=== PATIENT | female | born 1935 | race Two or more races ===

== ENCOUNTER 2016-08-02 10:56 | Inpatient (IN) | payer OTHER ==
[~2016-08-02] VITALS: Ht 165.1 cm; Wt 61.9 kg
[2016-08-02] VITALS (19 sets, daily range): BP systolic 118–148; BP diastolic 66–91; PULSE 72–122; RESP 12–31; Ht 165.1 cm; Wt 61.9 kg
[~2016-08-02 10:56] MED LIST: CEFAZOLIN 2 GM/50 ML (PMX) 50 ML IVPB SCH; SOD CHLORIDE 0.9% 1,000 ML IV SCH
[2016-08-02] MEDS ORDERED: ALBU8.5H3 INH (11:23)
[2016-08-02] MEDS ORDERED: ADV25050 INHALATION (11:23)
[2016-08-02] MEDS ORDERED: ASPI81TA3 PO (11:24)
[2016-08-02] MEDS ORDERED: ALEN70TA30 PO (11:24)
[2016-08-02] MEDS ORDERED: AMLO1TAB68 PO (11:24)
[2016-08-02] MEDS ORDERED: CALC-277 PO (11:25)
[2016-08-02] MEDS ORDERED: FLUT9.9S NASAL (11:25)
[2016-08-02] MEDS ORDERED: MONT10TA24 PO (11:26)
[2016-08-02] MEDS ORDERED: SIMV20TA PO (11:26)
[2016-08-02] MEDS ORDERED: METO-429 PO (11:26)
[2016-08-02] MEDS ORDERED: CETI10CA PO (11:27)
[2016-08-02] MEDS ORDERED: ACET325T45 PO (11:27)
[2016-08-02] MEDS ORDERED: CHOL100062 PO (11:27)
[2016-08-02] MEDS ORDERED: BUPIVACAINE 0.25% (MPF) 30 ML INJ ONE (13:11)
[2016-08-02] MEDS ORDERED: PROPOFOL 20 ML ONE (13:18)
[2016-08-02] MEDS ORDERED: ROCURONIUM 50 MG INJ ONE (13:18)
[2016-08-02] MEDS ORDERED: CEFAZOLIN 1 GM INJ ONE (13:20)
[2016-08-02] MEDS ORDERED: GLYCOPYRROLATE 0.4 MG INJ ONE (13:31)
[2016-08-02] MEDS ORDERED: NEOSTIGMINE 3 MG/3 ML SYRINGE ONE (13:31)
[2016-08-02] MEDS ORDERED: ROPIVACAINE 0.5 % 30 ML VIAL ONE (13:55)
[2016-08-02] MEDS ORDERED: METOPROLOL 5 MG INJ ONE (13:55)
[2016-08-02] MEDS ORDERED: METOCLOPRAMIDE 10 MG INJ IV PRN (14:00)
[2016-08-02] MEDS ORDERED: DIPHENHYDRAMINE 50 MG INJ IV PRN (14:00)
[2016-08-02] MEDS ORDERED: OXYCODONE/ACETAMINOPHEN (5/325) TAB PO PRN (14:00)
[2016-08-02] MEDS ORDERED: ONDANSETRON 4 MG INJ IV PRN (14:00)
[2016-08-02] MEDS ORDERED: MEPERIDINE 25 MG INJ IV PRN (14:00)
[2016-08-02] MEDS ORDERED: HYDROmorphONE (0.2 MG/ML) 10ML SYG IV PRN ×3 (14:00)
[2016-08-02] MEDS ORDERED: METOCLOPRAMIDE 10 MG INJ ONE (15:06)
[2016-08-02] MEDS ORDERED: SOD CHLORIDE 0.9% 1,000 ML IV SCH (15:08)
[2016-08-02] MEDS ORDERED: FENTAnyl 50 MCG/ML VIAL ONE (15:10)
[2016-08-02] MEDS ORDERED: CEFAZOLIN 2 GM/50 ML (PMX) 50 ML IVPB SCH (15:30)
[2016-08-02] MEDS ORDERED: NALOXONE (0.4 MG/ML) INJ IV PRN (15:30)
[2016-08-02] MEDS ORDERED: HYDROmorphONE 0.2 MG/ML PCA IV SCH (15:30)
--- NOTE | 2016-08-02 15:46 | OPR ---
DATE OF OPERATION: 08/02/2016 INDICATION: This is an 81-year-old female with an incarcerated incisional hernia in the midline in the left lower quadrant, left spigelian hernia. She requests surgical repair. Risks, alternatives, benefits and personnel were discussed with the patient. Patient expressed understanding and consen ts to the operation. PREOPERATIVE DIAGNOSIS: Left spigelian hernia and incarcerated, midline incisional hernia. POSTOPERATIVE DIAGNOSIS: Left spigelian hernia and incarcerated, midline incisional hernia. OPERATION PERFORMED: 1. Open left lower quadrant spigelian hernia repair. 2. Incarcerated incisional hernia repair. CPT code 81920. 3. Implantation of mesh. CPT code 27842. 4. Omental flap intraabdominal harvest, CPT codes 26070. 5. Lysis of adhesions approximately 1 hour. SURGEON: Aster Enriquez MD SPECIMEN: Hernia sac. COMPLICATIONS: None. ANESTHESIA: General. DESCRIPTION OF PROCEDURE: The patient was taken to the OR and prepped and draped in the usual steri le fashion. Surgical timeout was performed. IV antibiotics were given. Midline incision is made t hrough the old midline scar line and the way up to the umbilicus. Open lysis of adhesions was perfo rmed mobilizing the adhesions away from the incision line. Attention was paid to the left lower charles drant where a large spigelian hernia was identified. This was closed primarily with a running #1 lo oped PDS. The midline was then closed by initially harvesting omental flap and reapproximating to t he surrounding tissues with interrupted 2-0 Vicryl to isolate the hernia away from any other content s. The hernia is then closed with underlay mesh of 15 x [address] with interrupted #1 Pr olene . After the fascial edges were freshened with an underlay of approximately 4 to 5 cm in all d irections, the midline incision was then closed after the excess hernia sac was excised and resected specimen. The midline incision at the fascia was primarily closed with running #1 looped PDS from superior to anterior and inferior to superior and tied down. The potential space created by the her elizabeth sac is then reapproximated with interrupted 2-0 Vicryl. The midline incision was then closed wi th skin cheli. Local anesthesia was injected. Dry dressings were applied. Dictated By: ASTER ENRIQUEZ MD SB/NTS Conf#: [id number] [facility]#: [id number]
[2016-08-02 16:35] LABS: ADD SCAN DIFF NO
[2016-08-02 16:38] LABS: BASOPHIL # 0.1 10^3/ul (0.0-0.1); BASOPHILS % 0.3 % (0.0-2.0); EOSINOPHILS # 0.1 10^3/ul (0.0-0.5); EOSINOPHILS % 0.7 % (0.0-7.0); HEMATOCRIT 38.7 % (37.0-47.0); HEMOGLOBIN 12.7 g/dl (12.0-16.0); LYMPHOCYTES # 1.8 10^3/ul (0.8-2.9); LYMPHOCYTES % 11.9 % (15.0-51.0); MEAN CORPUSCULAR HEMOGLOBIN 31.8 pg (29.0-33.0); MEAN CORPUSCULAR HGB CONC 32.8 g/dl (32.0-37.0); MONOCYTE # 0.7 10^3/ul (0.3-0.9); MONOCYTES % 4.6 % (0.0-11.0); NEUTROPHIL # 12.3 10^3/ul (1.6-7.5); PLATELET COUNT 187 10^3/UL (140-415); RED BLOOD COUNT 3.99 10^6/ul (4.20-5.40); RED CELL DISTRIBUTION WIDTH 13.1 % (11.5-14.5); WHITE BLOOD COUNT 15.1 10^3/ul (4.8-10.8)
[2016-08-02 16:57] LABS: ALBUMIN 3.7 g/dl (3.3-4.9); ALBUMIN/GLOBULIN RATIO 1.54; BILIRUBIN,INDIRECT 0.1 mg/dl (0-1.1); BILIRUBIN,TOTAL 0.1 mg/dl (0.2-1.3); POTASSIUM 4.3 mmol/L (3.5-5.1); TOTAL PROTEIN 6.1 g/dl (6.1-8.1)
[2016-08-02 16:58] LABS: CALCIUM 8.6 mg/dl (8.4-10.2); CREATININE 0.62 mg/dl (0.44-1.00)
[2016-08-02] MEDS: SOD CHLORIDE 0.45% 1,000 ML IV SCH (18:47)
[2016-08-02] MEDS ORDERED: hydrALAzine 20 MG INJ IV PRN (19:00)
[2016-08-02] MEDS: ONDANSETRON 4 MG INJ IV PRN (19:05)
--- NOTE | 2016-08-02 20:28 | HP ---
DATE OF ADMISSION: 08/02/2016 CHIEF COMPLAINT AND HISTORY OF PRESENT ILLNESS: The patient is an 81-year-old female with a history of and laparoscopic cholecystectomy, was seen by Dr. Enriquez as an outpatient and was diagnos ed with incisional hernia. The patient was initially managed with conservative treatment. The [facility] ent had a CT of the abdomen done as an outpatient which revealed large right periumbilical hernia co ntaining multiple loops of small bowel without evidence for bowel obstruction. The patient also was incidentally noted to have extensive diverticulosis and partially visualized large cystocele. The patient subsequently failed conservative treatment and was seen by Dr. Enriquez again due to continued ab dominal pain, and the patient underwent nuclear stress test as an outpatient for cardiology clearanc e, which was negative for ischemia. EF was 65%. The patient was brought into the hospital today, a nd the preoperative diagnosis was left spigelian hernia and incarcerated midline incisional hernia. The patient underwent open left lower quadrant spigelian hernia repair and also incarcerated incisi onal hernia repair. The patient underwent implantation of mesh. The patient also underwent lysis o f adhesions. The patient was sent to medical floor for further evaluation and management. The [facility] ent does have postoperative discomfort for which patient will be given IV morphine. The patient den ies any chest pain and is breathing comfortably. No reported vomiting, no reported chest congestion , no reported leg edema. The patient does not have any focal deficit. The patient is awake and res ponsive. Rest of the review of systems was unremarkable. PAST MEDICAL HISTORY: Positive for hypertension, dyslipidemia and possible asthma versus COPD. ALLERGIES: CODEINE. SOCIAL HISTORY: No smoking, no alcohol. FAMILY HISTORY: Noncontributory. PHYSICAL EXAMINATION: GENERAL: The patient is conscious, awake, alert. VITAL SIGNS: Temperature 98, pulse 112, respirations 16, blood pressure 121/74, O2 saturation 92% o n ____ liters. HEENT: Atraumatic, normocephalic. Conjunctivae and lids normal. Oropharynx clear. NECK: Supple. No mass, no thyromegaly. CHEST: Fairly clear. No use of accessory muscles. CARDIOVASCULAR: S1, S2 normal. No murmur. ABDOMEN: Examination was deferred due to recent surgery. EXTREMITIES: No leg edema. Pedal pulses palpable. SKIN: Without acute rash. NEUROLOGIC: The patient is awake, alert, follows simple commands. LABORATORY DATA: WBC 15.1, hemoglobin 12.7, platelets 187. Sodium 143, potassium 4.3, BUN 12, crea tinine 0.6. Liver enzymes normal. 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 IMPRESSION: 1. Left spigelian hernia and incarcerated midline incisional hernia, status post open repair. 2. Hypertension. 3. Dyslipidemia. 4. Asthma/ chronic obstructive pulmonary disease. PLAN: The patient admitted on medical floor. The patient will be given a clear liquid diet. The p atient will receive IV cefazolin as per protocol. Will continue IV fluid, IV Tylenol, p.o. Percocet and IV Dilaudid for pain control. The patient did receive IV Dilaudid in recovery room and tolerat ed it well. The patient is currently on IV Dilaudid ENTRY LEVEL RECRUITER. Her mental status and respiratory status will be monitored closely due to history of COPD. Will hold off on her oral medication. Will use I V hydralazine on p.r.n. basis. Will also add DuoNeb. Dictated By: RONI WORTHINGTON/NTS Conf#: [id number] [facility]#: [id number]
[2016-08-02] MEDS: CEFAZOLIN 2 GM/50 ML (PMX) 50 ML IVPB SCH (21:30)
[2016-08-02] MEDS: ALBUTEROL/IPRATROPIUM (NEB) 3 ML AMP HHN SCH (22:04)
[2016-08-03 00:15] VITALS: BP 131/75; PULSE 108; RESP 16
[2016-08-03] MEDS: SOD CHLORIDE 0.45% 1,000 ML IV SCH ×3 (04:45→18:14)
[2016-08-03] MEDS: ONDANSETRON 4 MG INJ IV PRN ×2 (04:54→13:56)
[2016-08-03] MEDS: CEFAZOLIN 2 GM/50 ML (PMX) 50 ML IVPB SCH ×2 (05:23→14:54)
[2016-08-03 05:37] LABS: ADD SCAN DIFF NO
[2016-08-03 05:51] LABS: BASOPHILS % 0.1 % (0.0-2.0); HEMOGLOBIN 12.4 g/dl (12.0-16.0); LYMPHOCYTES # 0.9 10^3/ul (0.8-2.9); LYMPHOCYTES % 5.5 % (15.0-51.0); MEAN CORPUSCULAR HEMOGLOBIN 31.9 pg (29.0-33.0); MEAN CORPUSCULAR HGB CONC 33.5 g/dl (32.0-37.0); MEAN CORPUSCULAR VOLUME 95.1 fl (82.0-101.0); MONOCYTE # 1.2 10^3/ul (0.3-0.9); MONOCYTES % 7.9 % (0.0-11.0); NEUTROPHIL # 13.3 10^3/ul (1.6-7.5); PLATELET COUNT 181 10^3/UL (140-415); RED BLOOD COUNT 3.89 10^6/ul (4.20-5.40); RED CELL DISTRIBUTION WIDTH 13.2 % (11.5-14.5); WHITE BLOOD COUNT 15.5 10^3/ul (4.8-10.8)
[2016-08-03 06:03] LABS: ALBUMIN 3.8 g/dl (3.3-4.9); ALBUMIN/GLOBULIN RATIO 1.46; BILIRUBIN,INDIRECT 0.4 mg/dl (0-1.1); BILIRUBIN,TOTAL 0.4 mg/dl (0.2-1.3); CALCIUM 8.7 mg/dl (8.4-10.2); CREATININE 0.64 mg/dl (0.44-1.00); POTASSIUM 4.6 mmol/L (3.5-5.1); TOTAL PROTEIN 6.4 g/dl (6.1-8.1)
[2016-08-03] MEDS: ACETAMINOPHEN 325 MG TAB PO PRN (07:07)
[2016-08-03 08:05] VITALS: BP 124/71; RESP 20
[2016-08-03] MEDS: ALBUTEROL/IPRATROPIUM (NEB) 3 ML AMP HHN SCH ×3 (09:14→20:31)
[2016-08-03 09:16] VITALS: BP 145/63; PULSE 69
[2016-08-03] MEDS: ACETAMINOPHEN 1000MG/100ML IV 100 ML IVPB PRN (09:25)
[2016-08-03 12:00] VITALS: BP 126/65; PULSE 104; RESP 18
--- NOTE | 2016-08-03 12:05 | PN ---
Date/Time of Note Date/Time of Note DATE: 08/03/16 TIME: 12:03 Assessment/Plan VTE Prophylaxis VTE Prophylaxis Intervention: SCD's Lines/Catheters IV Catheter Type (from Nrs): Peripheral IV Assessment/Plan Chief Complaint/Hosp Course s/p open incarcerated incisional hernia repair with mesh and left spigelian hernia repair Problems: Assessment/Plan doing well ambulate and regular diet dispo planning Subjective 24 Hr Interval Summary Free Text/Dictation doing well, some nausea Exam/Review of Systems Vital Signs Vitals Vital Signs Date Time Temp Pulse Resp B/P Pulse Ox O2 Delivery O2 Flow Rate FiO2 08/03/16 09:16 69 145/63 08/03/16 09:16 20 94 Nasal Cannula 3.0 08/03/16 08:05 99.0 Intake and Output 08/02/16 08/02/16 08/03/16 15:00 23:00 07:00 Intake Total 1200 ml 1550 ml Output Total 30 ml Balance 1170 ml 1550 ml Exam dressing intact Results Result Diagram: 08/03/16 0508 08/03/16 0500 Results 24 hrs Laboratory Tests Test 08/02/16 15:45 08/03/16 05:00 08/03/16 05:08 White Blood Count 15.1 H 15.5 H Red Blood Count 3.99 L 3.89 L Hemoglobin 12.7 12.4 Hematocrit 38.7 37.0 Mean Corpuscular Volume 97.0 95.1 Mean Corpuscular Hemoglobin 31.8 31.9 Mean Corpuscular Hemoglobin Concent 32.8 33.5 Red Cell Distribution Width 13.1 13.2 Platelet Count 187 181 Mean Platelet Volume 11.0 H 11.0 H Neutrophils % 82.0 H 86.0 H Lymphocytes % 11.9 L 5.5 L Monocytes % 4.6 7.9 Eosinophils % 0.7 0.0 Basophils % 0.3 0.1 Nucleated Red Blood Cells % 0.0 0.0 Neutrophils # 12.3 H 13.3 H Lymphocytes # 1.8 0.9 Monocytes # 0.7 1.2 H Eosinophils # 0.1 0.0 Basophils # 0.1 0.0 Nucleated Red Blood Cells # 0.0 0.0 Sodium Level 141 134 L Potassium Level 4.3 4.6 Chloride Level 115 H 108 Carbon Dioxide Level 24 23 Anion Gap 6 L 8 Blood Urea Nitrogen 12 16 Creatinine 0.62 0.64 Glucose Level 167 147 Calcium Level 8.6 8.7 Total Bilirubin 0.1 L 0.4 Direct Bilirubin 0.00 0.00 Indirect Bilirubin 0.1 0.4 Aspartate Amino Transf (AST/SGOT) 18 18 Alanine Aminotransferase (ALT/SGPT) 26 27 Alkaline Phosphatase 61 48 Total Protein 6.1 6.4 Albumin 3.7 3.8 Globulin 2.40 2.60 Albumin/Globulin Ratio 1.54 1.46 Medications Medications Current Medications Naloxone HCl (Narcan) 0.2 mg Q2M PRN IV RR 8 BREATHS/MIN OR LESS; Start at 15:30 Hydromorphone HCl Q4PCA IV Last administered on 08/02/16 15:39; Admin Dose 6 MG; Start 08/02/16 at 15:30 Cefazolin Sodium/ Dextrose 50 ml @ 100 mls/hr Q8H IVPB Last administered on 05:23; Admin Dose 100 MLS/HR; Start 08/02/16 at 21:30; Stop 08/03/16 at 13 :59 Acetaminophen (Ofirmev 1000mg/ 100ml Iv) 100 ml @ 400 mls/hr Q6H PRN IVPB PAIN LEVEL 1-3 Last administered on 08/03/16 09:25; Admin Dose 400 MLS/HR; Start 08/02/16 at 19:00 Hydralazine HCl 10 mg 10 mg Q4H PRN IV SBP>160; Start 08/02/16 at 19:00 Sodium Chloride (1/2 NS) 1,000 ml @ 100 mls/hr Q10H IV Last administered on 04:45; Admin Dose 100 MLS/HR; Start 08/02/16 at 19:00 Ondansetron HCl (Zofran Inj) 4 mg Q6H PRN IV NAUSEA AND/OR VOMITING Last administered on 08/03/16 04:54; Admin Dose 4 MG; Start 08/02/16 at 18:57 Acetaminophen (Tylenol Tab) 650 mg Q6H PRN PO PAIN AND OR ELEVATED TEMP; Start 08/03/16 at 07:30 Mumtaz ZAMBRANO Aug 03, 2016 12:04
[2016-08-03] MEDS ORDERED: morphine 2 MG INJ IV PRN (12:30)
--- NOTE | 2016-08-03 12:50 | PN ---
Date/Time of Note Date/Time of Note DATE: 08/03/16 TIME: 12:34 Assessment/Plan VTE Prophylaxis VTE Prophylaxis Intervention: SCD's Lines/Catheters IV Catheter Type (from Nrsg): Peripheral IV Assessment/Plan Assessment/Plan - Left spigelian hernia and incarcerated midline incisional hernia, status post open repair. - per surgery , IV cefazolin as per protocol. - clear liquid diet - IV Dilaudid MAC OPERATOR-c/o nausea/vomitting - Tylenol 1 gmIV q6hr prn - ultram 50 mg po q4hr prn pain - toradol 15 gm iv q6hr prn - Hypertension. - IV hydralazine on p.r.n. basis. - Dyslipidemia. - Asthma/ chronic obstructive pulmonary disease. -cont DuoNeb. Dw Dr Oseguera/staff/daughter Subjective 24 Hr Interval Summary Constitutional: requiring IVF Exam/Review of Systems Vital Signs Vitals Vital Signs Date Time Temp Pulse Resp B/P Pulse Ox O2 Delivery O2 Flow Rate FiO2 08/03/16 09:16 69 145/63 08/03/16 09:16 20 94 Nasal Cannula 3.0 08/03/16 08:05 99.0 Intake and Output 08/02/16 08/02/16 08/03/16 14:59 22:59 06:59 Intake Total 1200 ml 1550 ml Output Total 30 ml Balance 1170 ml 1550 ml Exam Constitutional: alert, well developed Respiratory: clear to auscultation, normal air movement Cardiovascular: nl pulses, regular rate and rhythm Gastrointestinal: soft, tender Neurological: nl mental status, nl speech Skin: other Lymph: nontender Results Result Diagram: 08/03/16 0508 08/03/16 0500 Results 24 hrs Laboratory Tests Test 08/02/16 15:45 08/03/16 05:00 08/03/16 05:08 White Blood Count 15.1 H 15.5 H Red Blood Count 3.99 L 3.89 L Hemoglobin 12.7 12.4 Hematocrit 38.7 37.0 Mean Corpuscular Volume 97.0 95.1 Mean Corpuscular Hemoglobin 31.8 31.9 Mean Corpuscular Hemoglobin Concent 32.8 33.5 Red Cell Distribution Width 13.1 13.2 Platelet Count 187 181 Mean Platelet Volume 11.0 H 11.0 H Neutrophils % 82.0 H 86.0 H Lymphocytes % 11.9 L 5.5 L Monocytes % 4.6 7.9 Eosinophils % 0.7 0.0 Basophils % 0.3 0.1 Nucleated Red Blood Cells % 0.0 0.0 Neutrophils # 12.3 H 13.3 H Lymphocytes # 1.8 0.9 Monocytes # 0.7 1.2 H Eosinophils # 0.1 0.0 Basophils # 0.1 0.0 Nucleated Red Blood Cells # 0.0 0.0 Sodium Level 141 134 L Potassium Level 4.3 4.6 Chloride Level 115 H 108 Carbon Dioxide Level 24 23 Anion Gap 6 L 8 Blood Urea Nitrogen 12 16 Creatinine 0.62 0.64 Glucose Level 167 147 Calcium Level 8.6 8.7 Total Bilirubin 0.1 L 0.4 Direct Bilirubin 0.00 0.00 Indirect Bilirubin 0.1 0.4 Aspartate Amino Transf (AST/SGOT) 18 18 Alanine Aminotransferase (ALT/SGPT) 26 27 Alkaline Phosphatase 61 48 Total Protein 6.1 6.4 Albumin 3.7 3.8 Globulin 2.40 2.60 Albumin/Globulin Ratio 1.54 1.46 Medications Medications Current Medications Naloxone HCl 0.2 mg 0.2 mg Q2M PRN IV RR 8 BREATHS/MIN OR LESS; Start 08/02/16 at 15:30 Cefazolin Sodium/ Dextrose 50 ml @ 100 mls/hr Q8H IVPB Last administered on 05:23; Admin Dose 100 MLS/HR; Start 08/02/16 at 21:30; Stop 08/03/16 at 13 :59 Acetaminophen (Ofirmev 1000mg/ 100ml Iv) 100 ml @ 400 mls/hr Q6H PRN IVPB PAIN LEVEL 1-3 Last administered on 08/03/16 09:25; Admin Dose 400 MLS/HR; Start 08/02/16 at 19:00 Hydralazine HCl 10 mg 10 mg Q4H PRN IV SBP>160; Start 08/02/16 at 19:00 Sodium Chloride (1/2 NS) 1,000 ml @ 100 mls/hr Q10H IV Last administered on 04:45; Admin Dose 100 MLS/HR; Start 08/02/16 at 19:00 Ondansetron HCl (Zofran Inj) 4 mg Q6H PRN IV NAUSEA AND/OR VOMITING Last administered on 08/03/16t 04:54; Admin Dose 4 MG; Start 08/02/16 at 18:57 Acetaminophen (Tylenol Tab) 650 mg Q6H PRN PO PAIN AND OR ELEVATED TEMP; Start 08/03/16 at 07:30 Morphine Sulfate (morphine) 1 mg Q3H PRN IV PAIN; Start 08/03/16 at 12:30; Status ARIADNA HIRSCH Aug 03, 2016 12:45
[2016-08-03] MEDS ORDERED: ACETAMINOPHEN 1000MG/100ML IV 100 ML IVPB PRN (13:00)
[2016-08-03] MEDS ORDERED: PANTOPRAZOLE 40 MG INJ IV ONE (13:00)
[2016-08-03] MEDS: KETOROLAC 15 MG INJ IV PRN (16:42)
[2016-08-03] MEDS: traMADol 50 MG TAB PO PRN (18:14)
[2016-08-03 20:00] VITALS: BP 136/69; RESP 18
[2016-08-04] MEDS: SOD CHLORIDE 0.45% 1,000 ML IV SCH ×4 (01:00→15:14)
[2016-08-04] MEDS: ACETAMINOPHEN 1000MG/100ML IV 100 ML IVPB PRN ×2 (02:23→15:16)
[2016-08-04 05:35] LABS: ADD SCAN DIFF NO
[2016-08-04] MEDS: PANTOPRAZOLE 40 MG INJ IV SCH (05:46)
[2016-08-04 05:49] LABS: BASOPHILS % 0.1 % (0.0-2.0); EOSINOPHILS % 0.2 % (0.0-7.0); HEMATOCRIT 31.2 % (37.0-47.0); HEMOGLOBIN 10.3 g/dl (12.0-16.0); LYMPHOCYTES % 7.9 % (15.0-51.0); MEAN CORPUSCULAR HEMOGLOBIN 31.7 pg (29.0-33.0); MEAN PLATELET VOLUME 11.3 fl (7.4-10.4); MONOCYTES % 7.3 % (0.0-11.0); NEUTROPHILS % 84.2 % (39.0-77.0); PLATELET COUNT 149 10^3/UL (140-415); RED BLOOD COUNT 3.25 10^6/ul (4.20-5.40); RED CELL DISTRIBUTION WIDTH 13.4 % (11.5-14.5); WHITE BLOOD COUNT 13.1 10^3/ul (4.8-10.8)
[2016-08-04 07:04] LABS: CALCIUM 8.1 mg/dl (8.4-10.2); CREATININE 0.62 mg/dl (0.44-1.00); POTASSIUM 4.2 mmol/L (3.5-5.1)
[2016-08-04 08:20] VITALS: BP 138/65; RESP 16
[2016-08-04] MEDS: ALBUTEROL/IPRATROPIUM (NEB) 3 ML AMP HHN SCH ×3 (09:16→20:20)
--- NOTE | 2016-08-04 16:42 | PN ---
Date/Time of Note Date/Time of Note DATE: 08/04/16 TIME: 16:38 Assessment/Plan VTE Prophylaxis VTE Prophylaxis Intervention: SCD's Lines/Catheters IV Catheter Type (from Nrsg): Peripheral IV Assessment/Plan Chief Complaint/Hosp Course Patient denies any nausea and vomiting, complaints of surgical pain, well controlled on current rate medication regimen, tolerates diet well, however daughter at the bedside complaints of the patient has poor appetite, awaits for physical therapy. Problems: Assessment/Plan - Left spigelian hernia and incarcerated midline incisional hernia, status post open repair. Continue Ultram and morphine for pain Zofran as needed for nausea. Follow-up surgical recommendations. - Hypertension. Patient is currently normotensive. - Dyslipidemia. - Asthma/ chronic obstructive pulmonary disease. Continue Advair and montelukast. Further recommendations based on clinical course. Plan of care was discussed with Dr. Oseguera. Exam/Review of Systems Vital Signs Vitals Vital Signs Date Time Temp Pulse Resp B/P Pulse Ox O2 Delivery O2 Flow Rate FiO2 08/04/16 13:49 95 20 96 Nasal Cannula 3.0 08/04/16 08:20 98.2 138/65 Intake and Output 08/03/16 08/03/16 08/04/16 15:00 23:00 07:00 Intake Total 100 ml 490 ml 1500 ml Balance 100 ml 490 ml 1500 ml Exam Constitutional: alert, oriented Head: normocephalic Neck: supple Respiratory: clear to auscultation Cardiovascular: nl pulses Gastrointestinal: other (Status post surgery), soft Extremities: normal pulses Results Result Diagram: 08/04/16 0455 08/04/16 0455 Results 24 hrs Laboratory Tests Test 08/04/16 04:55 White Blood Count 13.1 H Red Blood Count 3.25 L Hemoglobin 10.3 L Hematocrit 31.2 L Mean Corpuscular Volume 96.0 Mean Corpuscular Hemoglobin 31.7 Mean Corpuscular Hemoglobin Concent 33.0 Red Cell Distribution Width 13.4 Platelet Count 149 Mean Platelet Volume 11.3 H Neutrophils % 84.2 H Lymphocytes % 7.9 L Monocytes % 7.3 Eosinophils % 0.2 Basophils % 0.1 Nucleated Red Blood Cells % 0.0 Neutrophils # 11.0 H Lymphocytes # 1.0 Monocytes # 1.0 H Eosinophils # 0.0 Basophils # 0.0 Nucleated Red Blood Cells # 0.0 Sodium Level 133 L Potassium Level 4.2 Chloride Level 104 Carbon Dioxide Level 23 Anion Gap 10 Blood Urea Nitrogen 13 Creatinine 0.62 Glucose Level 111 Calcium Level 8.1 L Medications Medications Current Medications Naloxone HCl 0.2 mg 0.2 mg Q2M PRN IV RR 8 BREATHS/MIN OR LESS; Start 08/02/16 at 15:30 Acetaminophen (Ofirmev 1000mg/ 100ml Iv) 100 ml @ 400 mls/hr Q6H PRN IVPB PAIN LEVEL 1-3 Last administered on 08/04/16 15:16; Admin Dose 400 MLS/HR; Start 08/02/16 at 19:00 Hydralazine HCl 10 mg 10 mg Q4H PRN IV SBP>160; Start 08/02/16 at 19:00 Sodium Chloride (1/2 NS) 1,000 ml @ 100 mls/hr Q10H IV Last administered on 15:14; Admin Dose 100 MLS/HR; Start 08/02/16 at 19:00 Ondansetron HCl (Zofran Inj) 4 mg Q6H PRN IV NAUSEA AND/OR VOMITING Last administered on 08/03/16 13:56; Admin Dose 4 MG; Start 08/02/16 at 18:57 Acetaminophen (Tylenol Tab) 650 mg Q6H PRN PO PAIN AND OR ELEVATED TEMP; Start 08/03/16 at 07:30 Morphine Sulfate (morphine) 1 mg Q3H PRN IV PAIN; Start 08/03/16 at 12:30 Pantoprazole (Protonix Iv) 40 mg DAILY@06 IV Last administered on 08/04/16 05: 46; Admin Dose 40 MG; Start 08/04/16 at 06:00 Tramadol HCl (Ultram) 50 mg Q4H PRN PO PAIN LEVEL 4-6 Last administered on 18:14; Admin Dose 50 MG; Start 08/03/16 at 13:00 Ketorolac Tromethamine (Toradol) 15 mg Q6H PRN IV SEVERE PAIN LEVEL 7-10 Last administered on 08/03/16 16:42; Admin Dose 15 MG; Start 08/03/16 at 13:00; Stop 08/06/16 at 12:59 KEVON DESIR Aug 04, 2016 16:41
--- NOTE | 2016-08-04 18:31 | PN ---
Date/Time of Note Date/Time of Note DATE: 08/04/16 TIME: 18:31 Assessment/Plan VTE Prophylaxis VTE Prophylaxis Intervention: SCD's Lines/Catheters IV Catheter Type (from Nrsg): Peripheral IV Assessment/Plan Chief Complaint/Hosp Course s/p open incarcerated incisional hernia repair with mesh and left spigelian hernia repair Problems: Assessment/Plan dispo planning Subjective 24 Hr Interval Summary Free Text/Dictation per daughter, patient had vomiting however nothing record in I/O Exam/Review of Systems Vital Signs Vitals Vital Signs Date Time Temp Pulse Resp B/P Pulse Ox O2 Delivery O2 Flow Rate FiO2 08/04/16 13:49 95 20 96 Nasal Cannula 3.0 08/04/16 08:20 98.2 138/65 Intake and Output 08/03/16 08/03/16 08/04/16 15:00 23:00 07:00 Intake Total 100 ml 490 ml 1500 ml Balance 100 ml 490 ml 1500 ml Exam c/d/i Results Result Diagram: 08/04/16 0455 08/04/16 0455 Results 24 hrs Laboratory Tests Test 08/04/16 04:55 White Blood Count 13.1 H Red Blood Count 3.25 L Hemoglobin 10.3 L Hematocrit 31.2 L Mean Corpuscular Volume 96.0 Mean Corpuscular Hemoglobin 31.7 Mean Corpuscular Hemoglobin Concent 33.0 Red Cell Distribution Width 13.4 Platelet Count 149 Mean Platelet Volume 11.3 H Neutrophils % 84.2 H Lymphocytes % 7.9 L Monocytes % 7.3 Eosinophils % 0.2 Basophils % 0.1 Nucleated Red Blood Cells % 0.0 Neutrophils # 11.0 H Lymphocytes # 1.0 Monocytes # 1.0 H Eosinophils # 0.0 Basophils # 0.0 Nucleated Red Blood Cells # 0.0 Sodium Level 133 L Potassium Level 4.2 Chloride Level 104 Carbon Dioxide Level 23 Anion Gap 10 Blood Urea Nitrogen 13 Creatinine 0.62 Glucose Level 111 Calcium Level 8.1 L Medications Medications Current Medications Naloxone HCl 0.2 mg 0.2 mg Q2M PRN IV RR 8 BREATHS/MIN OR LESS; Start 08/02/16 at 15:30 Acetaminophen (Ofirmev 1000mg/ 100ml Iv) 100 ml @ 400 mls/hr Q6H PRN IVPB PAIN LEVEL 1-3 Last administered on 08/04/16t 15:16; Admin Dose 400 MLS/HR; Start 08/02/16 at 19:00 Hydralazine HCl 10 mg 10 mg Q4H PRN IV SBP>160; Start 08/02/16 at 19:00 Sodium Chloride (1/2 NS) 1,000 ml @ 40 mls/hr Q24H IV Last administered on 08/04 15:14; Admin Dose 100 MLS/HR; Start 08/02/16 at 19:00 Ondansetron HCl (Zofran Inj) 4 mg Q6H PRN IV NAUSEA AND/OR VOMITING Last administered on 08/03/16 13:56; Admin Dose 4 MG; Start 08/02/16 at 18:57 Acetaminophen (Tylenol Tab) 650 mg Q6H PRN PO PAIN AND OR ELEVATED TEMP; Start 08/03/16 at 07:30 Morphine Sulfate (morphine) 1 mg Q3H PRN IV PAIN; Start 08/03/16 at 12:30 Pantoprazole (Protonix Iv) 40 mg DAILY@06 IV Last administered on 08/04/16 05: 46; Admin Dose 40 MG; Start 08/04/16 at 06:00 Tramadol HCl (Ultram) 50 mg Q4H PRN PO PAIN LEVEL 4-6 Last administered on 18:14; Admin Dose 50 MG; Start 08/03/16 at 13:00 Ketorolac Tromethamine (Toradol) 15 mg Q6H PRN IV SEVERE PAIN LEVEL 7-10 Last administered on 08/03/16 16:42; Admin Dose 15 MG; Start 08/03/16 at 13:00; Stop 08/06/16 at 12:59 Montelukast Sodium (Singulair) 10 mg QHS PO ; Start 08/04/16 at 21:00 Salmeterol Xinafoate/ Fluticasone (Advair 250/50 Diskus) 1 inh BID INH ; Start 08/04/16 at 21:00 Mumtaz ZAMBRANO Aug 04, 2016 18:31
[2016-08-04] MEDS: SALMETEROL/FLUTICASONE 250/50 INHA INH SCH (20:31)
[2016-08-04] MEDS: MONTELUKAST 10 MG TAB PO SCH (20:31)
[2016-08-04] MEDS: ONDANSETRON 4 MG INJ IV PRN (20:31)
[2016-08-04 20:34] VITALS: BP 134/71; RESP 20
[2016-08-05] MEDS: KETOROLAC 15 MG INJ IV PRN ×3 (00:14→23:58)
[2016-08-05] MEDS: PANTOPRAZOLE 40 MG INJ IV SCH (05:05)
[2016-08-05 05:57] LABS: ADD SCAN DIFF NO
[2016-08-05 06:03] LABS: BASOPHILS % 0.4 % (0.0-2.0); EOSINOPHILS # 0.2 10^3/ul (0.0-0.5); EOSINOPHILS % 2.2 % (0.0-7.0); HEMATOCRIT 31.9 % (37.0-47.0); HEMOGLOBIN 10.6 g/dl (12.0-16.0); LYMPHOCYTES # 0.8 10^3/ul (0.8-2.9); LYMPHOCYTES % 7.8 % (15.0-51.0); MEAN CORPUSCULAR HEMOGLOBIN 31.7 pg (29.0-33.0); MEAN CORPUSCULAR HGB CONC 33.2 g/dl (32.0-37.0); MEAN CORPUSCULAR VOLUME 95.5 fl (82.0-101.0); MEAN PLATELET VOLUME 10.9 fl (7.4-10.4); MONOCYTE # 0.8 10^3/ul (0.3-0.9); MONOCYTES % 8.5 % (0.0-11.0); NEUTROPHIL # 7.8 10^3/ul (1.6-7.5); NEUTROPHILS % 80.8 % (39.0-77.0); PLATELET COUNT 156 10^3/UL (140-415); RED BLOOD COUNT 3.34 10^6/ul (4.20-5.40); RED CELL DISTRIBUTION WIDTH 13.2 % (11.5-14.5); WHITE BLOOD COUNT 9.7 10^3/ul (4.8-10.8)
[2016-08-05 06:27] LABS: CALCIUM 8.4 mg/dl (8.4-10.2); CREATININE 0.56 mg/dl (0.44-1.00)
[2016-08-05] MEDS: ALBUTEROL/IPRATROPIUM (NEB) 3 ML AMP HHN SCH ×3 (07:45→19:40)
[2016-08-05 07:48] VITALS: BP 124/62; RESP 16
[2016-08-05] MEDS: SALMETEROL/FLUTICASONE 250/50 INHA INH SCH ×2 (08:52→21:12)
--- NOTE | 2016-08-05 14:32 | PN ---
Date/Time of Note Date/Time of Note DATE: 08/05/16 TIME: 14:30 Assessment/Plan VTE Prophylaxis VTE Prophylaxis Intervention: other Lines/Catheters IV Catheter Type (from Nrsg): Peripheral IV Assessment/Plan Assessment/Plan Patient denies any nausea and vomiting, complaints of surgical pain, well controlled on current rate medication regimen, tolerates diet well, - Left spigelian hernia and incarcerated midline incisional hernia, status post open repair. Continue Ultram and morphine for pain Zofran as needed for nausea. Follow-up surgical recommendations. - Hypertension. Patient is currently normotensive. - Dyslipidemia. - Asthma/ chronic obstructive pulmonary disease. Continue Advair and montelukast. Further recommendations based on clinical course. Plan of care was discussed with Dr. Oseguera. Exam/Review of Systems Vital Signs Vitals Vital Signs Date Time Temp Pulse Resp B/P Pulse Ox O2 Delivery O2 Flow Rate FiO2 08/05/16 13:56 96 20 96 Nasal Cannula 3.0 08/05/16 07:48 98.4 124/62 Intake and Output 08/04/16 08/04/16 08/05/16 15:00 23:00 07:00 Intake Total 1480 ml 960 ml Output Total 20 ml Balance 1480 ml 940 ml Exam Constitutional: alert Respiratory: clear to auscultation, normal air movement Cardiovascular: nl pulses, regular rate and rhythm Gastrointestinal: non-tender, soft Musculoskeletal: nl extremities to inspection Extremities: normal pulses Skin: other Results Result Diagram: 08/05/16 0510 08/05/16 0510 Results 24 hrs Laboratory Tests Test 08/05/16 05:10 White Blood Count 9.7 # Red Blood Count 3.34 L Hemoglobin 10.6 L Hematocrit 31.9 L Mean Corpuscular Volume 95.5 Mean Corpuscular Hemoglobin 31.7 Mean Corpuscular Hemoglobin Concent 33.2 Red Cell Distribution Width 13.2 Platelet Count 156 Mean Platelet Volume 10.9 H Neutrophils % 80.8 H Lymphocytes % 7.8 L Monocytes % 8.5 Eosinophils % 2.2 Basophils % 0.4 Nucleated Red Blood Cells % 0.0 Neutrophils # 7.8 H Lymphocytes # 0.8 Monocytes # 0.8 Eosinophils # 0.2 Basophils # 0.0 Nucleated Red Blood Cells # 0.0 Sodium Level 136 Potassium Level 4.0 Chloride Level 109 Carbon Dioxide Level 23 Anion Gap 8 Blood Urea Nitrogen 9 Creatinine 0.56 Glucose Level 101 Calcium Level 8.4 Medications Medications Current Medications Naloxone HCl 0.2 mg 0.2 mg Q2M PRN IV RR 8 BREATHS/MIN OR LESS; Start 08/02/16 at 15:30 Acetaminophen (Ofirmev 1000mg/ 100ml Iv) 100 ml @ 400 mls/hr Q6H PRN IVPB PAIN LEVEL 1-3 Last administered on 08/04/16 15:16; Admin Dose 400 MLS/HR; Start 08/02/16 at 19:00 Hydralazine HCl 10 mg 10 mg Q4H PRN IV SBP>160; Start 08/02/16 at 19:00 Sodium Chloride (1/2 NS) 1,000 ml @ 40 mls/hr Q24H IV Last administered on 08/04 15:14; Admin Dose 100 MLS/HR; Start 08/02/16 at 19:00 Ondansetron HCl (Zofran Inj) 4 mg Q6H PRN IV NAUSEA AND/OR VOMITING Last administered on 08/04/16 20:31; Admin Dose 4 MG; Start 08/02/16 at 18:57 Acetaminophen (Tylenol Tab) 650 mg Q6H PRN PO PAIN AND OR ELEVATED TEMP; Start 08/03/16 at 07:30 Morphine Sulfate (morphine) 1 mg Q3H PRN IV PAIN; Start 08/03/16 at 12:30 Pantoprazole (Protonix Iv) 40 mg DAILY@06 IV Last administered on 08/05/16 05: 05; Admin Dose 40 MG; Start 08/04/16 at 06:00 Tramadol HCl (Ultram) 50 mg Q4H PRN PO PAIN LEVEL 4-6 Last administered on 18:14; Admin Dose 50 MG; Start 08/03/16 at 13:00 Ketorolac Tromethamine (Toradol) 15 mg Q6H PRN IV SEVERE PAIN LEVEL 7-10 Last administered on 08/05/16 11:19; Admin Dose 15 MG; Start 08/03/16 at 13:00; Stop 08/06/16 at 12:59 Montelukast Sodium (Singulair) 10 mg QHS PO Last administered on 08/04/16 20:31 ; Admin Dose 10 MG; Start 08/04/16 at 21:00 Salmeterol Xinafoate/ Fluticasone (Advair 250/50 Diskus) 1 inh BID INH Last administered on 08/05/16t 08:52; Admin Dose 1 INH; Start 08/04/16 at 21:00 ARIADNA VILA Aug 05, 2016 14:32
[2016-08-05] MEDS: SOD CHLORIDE 0.45% 1,000 ML IV SCH (15:22)
[2016-08-05] MEDS: ACETAMINOPHEN 325 MG TAB PO PRN (15:30)
[2016-08-05 20:08] VITALS: BP 109/64; RESP 18
[2016-08-05] MEDS: MONTELUKAST 10 MG TAB PO SCH (21:12)
[2016-08-06] MEDS: PANTOPRAZOLE 40 MG INJ IV SCH (05:48)
[2016-08-06 06:02] LABS: ADD SCAN DIFF NO
[2016-08-06 06:08] LABS: BASOPHILS % 0.5 % (0.0-2.0); EOSINOPHILS # 0.4 10^3/ul (0.0-0.5); EOSINOPHILS % 6.4 % (0.0-7.0); HEMATOCRIT 30.4 % (37.0-47.0); HEMOGLOBIN 10.4 g/dl (12.0-16.0); LYMPHOCYTES # 0.9 10^3/ul (0.8-2.9); LYMPHOCYTES % 14.6 % (15.0-51.0); MEAN CORPUSCULAR HEMOGLOBIN 32.6 pg (29.0-33.0); MEAN CORPUSCULAR HGB CONC 34.2 g/dl (32.0-37.0); MEAN CORPUSCULAR VOLUME 95.3 fl (82.0-101.0); MEAN PLATELET VOLUME 10.3 fl (7.4-10.4); MONOCYTE # 0.6 10^3/ul (0.3-0.9); MONOCYTES % 10.7 % (0.0-11.0); NEUTROPHILS % 67.6 % (39.0-77.0); PLATELET COUNT 193 10^3/UL (140-415); RED BLOOD COUNT 3.19 10^6/ul (4.20-5.40); RED CELL DISTRIBUTION WIDTH 13.1 % (11.5-14.5); WHITE BLOOD COUNT 5.9 10^3/ul (4.8-10.8)
[2016-08-06 06:30] LABS: CALCIUM 8.3 mg/dl (8.4-10.2); CREATININE 0.6 mg/dl (0.44-1.00); POTASSIUM 3.9 mmol/L (3.5-5.1)
[2016-08-06 08:08] VITALS: BP 114/61; RESP 18
[2016-08-06] MEDS: ALBUTEROL/IPRATROPIUM (NEB) 3 ML AMP HHN SCH ×3 (08:12→19:42)
[2016-08-06] MEDS: SALMETEROL/FLUTICASONE 250/50 INHA INH SCH ×2 (08:48→21:28)
--- NOTE | 2016-08-06 14:04 | PN ---
Date/Time of Note Date/Time of Note DATE: 08/06/16 TIME: 14:01 Assessment/Plan VTE Prophylaxis VTE Prophylaxis Intervention: other Lines/Catheters IV Catheter Type (from Nrsg): Peripheral IV Assessment/Plan Assessment/Plan Patient denies any nausea and vomiting, complaints of surgical pain, well controlled on current rate medication regimen, tolerates diet well, - Left spigelian hernia and incarcerated midline incisional hernia, status post open repair. Continue Ultram and morphine for pain Zofran as needed for nausea. Follow-up surgical recommendations. - Hypertension. Patient is currently normotensive. - Dyslipidemia. - Asthma/ chronic obstructive pulmonary disease. Continue Advair and montelukast. Further recommendations based on clinical course. Plan of care was discussed with Dr. Oseguera. Subjective 24 Hr Interval Summary Free Text/Dictation afebrile, nausea is better, dw staff- no new events reported overnight. Exam/Review of Systems Vital Signs Vitals Vital Signs Date Time Temp Pulse Resp B/P Pulse Ox O2 Delivery O2 Flow Rate FiO2 08/06/16 13:53 2.0 08/06/16 13:44 98 20 94 Nasal Cannula 08/06/16 08:08 98.6 114/61 Intake and Output 08/05/16 08/05/16 08/06/16 15:00 23:00 07:00 Intake Total 2150 ml 1190 ml Output Total 1575 ml Balance 2150 ml -385 ml Exam Constitutional: alert Neck: non-tender, supple Respiratory: clear to auscultation, normal air movement Cardiovascular: nl pulses, regular rate and rhythm Gastrointestinal: other, soft Skin: other Results Result Diagram: 08/06/16 0525 08/06/16 0525 Results 24 hrs Laboratory Tests Test 08/06/16 05:25 White Blood Count 5.9 # Red Blood Count 3.19 L Hemoglobin 10.4 L Hematocrit 30.4 L Mean Corpuscular Volume 95.3 Mean Corpuscular Hemoglobin 32.6 Mean Corpuscular Hemoglobin Concent 34.2 Red Cell Distribution Width 13.1 Platelet Count 193 # Mean Platelet Volume 10.3 Neutrophils % 67.6 Lymphocytes % 14.6 L Monocytes % 10.7 Eosinophils % 6.4 Basophils % 0.5 Nucleated Red Blood Cells % 0.0 Neutrophils # 4.0 Lymphocytes # 0.9 Monocytes # 0.6 Eosinophils # 0.4 Basophils # 0.0 Nucleated Red Blood Cells # 0.0 Sodium Level 139 Potassium Level 3.9 Chloride Level 109 Carbon Dioxide Level 25 Anion Gap 9 Blood Urea Nitrogen 10 Creatinine 0.60 Glucose Level 102 Calcium Level 8.3 L Medications Medications Current Medications Naloxone HCl 0.2 mg 0.2 mg Q2M PRN IV RR 8 BREATHS/MIN OR LESS; Start 08/02/16 at 15:30 Acetaminophen (Ofirmev 1000mg/ 100ml Iv) 100 ml @ 400 mls/hr Q6H PRN IVPB PAIN LEVEL 1-3 Last administered on 08/04/16 15:16; Admin Dose 400 MLS/HR; Start 08/02/16 at 19:00 Hydralazine HCl 10 mg 10 mg Q4H PRN IV SBP>160; Start 08/02/16 at 19:00 Sodium Chloride (1/2 NS) 1,000 ml @ 40 mls/hr Q24H IV Last administered on 08/05 15:22; Admin Dose 40 MLS/HR; Start 08/02/16 at 19:00 Ondansetron HCl (Zofran Inj) 4 mg Q6H PRN IV NAUSEA AND/OR VOMITING Last administered on 08/04/16 20:31; Admin Dose 4 MG; Start 08/02/16 at 18:57 Acetaminophen (Tylenol Tab) 650 mg Q6H PRN PO PAIN AND OR ELEVATED TEMP Last administered on 08/05/16 15:30; Admin Dose 650 MG; Start 08/03/16 at 07:30 Morphine Sulfate (morphine) 1 mg Q3H PRN IV PAIN; Start 08/03/16 at 12:30 Pantoprazole (Protonix Iv) 40 mg DAILY@06 IV Last administered on 08/06/16 05: 48; Admin Dose 40 MG; Start 08/04/16 at 06:00 Tramadol HCl (Ultram) 50 mg Q4H PRN PO PAIN LEVEL 4-6 Last administered on 18:14; Admin Dose 50 MG; Start 08/03/16 at 13:00 Montelukast Sodium (Singulair) 10 mg QHS PO Last administered on 08/05/16 21:12 ; Admin Dose 10 MG; Start 08/04/16 at 21:00 Salmeterol Xinafoate/ Fluticasone (Advair 250/50 Diskus) 1 inh BID INH Last administered on 08/06/16t 08:48; Admin Dose 1 INH; Start 08/04/16 at 21:00 ARIADNA VILA Aug 06, 2016 14:04
[2016-08-06] MEDS: SOD CHLORIDE 0.45% 1,000 ML IV SCH (18:39)
[2016-08-06 19:58] VITALS: BP 126/71; RESP 20
[2016-08-06] MEDS: MONTELUKAST 10 MG TAB PO SCH (21:28)
[2016-08-07] MEDS: PANTOPRAZOLE 40 MG INJ IV SCH (05:21)
[2016-08-07 05:40] LABS: ADD SCAN DIFF NO
[2016-08-07 05:50] LABS: BASOPHILS % 0.5 % (0.0-2.0); EOSINOPHILS # 0.4 10^3/ul (0.0-0.5); EOSINOPHILS % 6.4 % (0.0-7.0); HEMOGLOBIN 10.4 g/dl (12.0-16.0); LYMPHOCYTES # 1.1 10^3/ul (0.8-2.9); LYMPHOCYTES % 18.5 % (15.0-51.0); MEAN CORPUSCULAR HGB CONC 32.5 g/dl (32.0-37.0); MEAN CORPUSCULAR VOLUME 95.5 fl (82.0-101.0); MEAN PLATELET VOLUME 10.2 fl (7.4-10.4); MONOCYTE # 0.8 10^3/ul (0.3-0.9); MONOCYTES % 12.3 % (0.0-11.0); NEUTROPHIL # 3.8 10^3/ul (1.6-7.5); NEUTROPHILS % 61.8 % (39.0-77.0); PLATELET COUNT 227 10^3/UL (140-415); RED BLOOD COUNT 3.35 10^6/ul (4.20-5.40); RED CELL DISTRIBUTION WIDTH 13.5 % (11.5-14.5); WHITE BLOOD COUNT 6.1 10^3/ul (4.8-10.8)
[2016-08-07 06:19] LABS: CALCIUM 8.5 mg/dl (8.4-10.2); CREATININE 0.49 mg/dl (0.44-1.00); POTASSIUM 3.6 mmol/L (3.5-5.1)
[2016-08-07 07:52] VITALS: BP 150/76; RESP 18
[2016-08-07] MEDS: ALBUTEROL/IPRATROPIUM (NEB) 3 ML AMP HHN SCH ×3 (08:00→20:00)
--- NOTE | 2016-08-07 08:07 | PN ---
Date/Time of Note Date/Time of Note DATE: 08/07/16 TIME: 08:06 Assessment/Plan VTE Prophylaxis VTE Prophylaxis Intervention: SCD's Lines/Catheters IV Catheter Type (from Nrsg): Peripheral IV Assessment/Plan Chief Complaint/Hosp Course s/p open incarcerated incisional hernia repair with mesh and left spigelian hernia repair Problems: Assessment/Plan dc to acute rehab vs home Subjective 24 Hr Interval Summary Free Text/Dictation doing well, tolerating pain Exam/Review of Systems Vital Signs Vitals Vital Signs Date Time Temp Pulse Resp B/P Pulse Ox O2 Delivery O2 Flow Rate FiO2 08/07/16 07:52 98.1 85 18 150/76 95 08/06/16 20:00 Nasal Cannula 08/06/16 19:48 2.0 Intake and Output 08/06/16 08/06/16 08/07/16 15:00 23:00 07:00 Intake Total 1100 ml 740 ml Output Total 600 ml 1100 ml Balance 500 ml -360 ml Exam c/d/i Results Result Diagram: 08/07/16 0510 08/07/16 0510 Results 24 hrs Laboratory Tests Test 08/07/16 05:10 White Blood Count 6.1 Red Blood Count 3.35 L Hemoglobin 10.4 L Hematocrit 32.0 L Mean Corpuscular Volume 95.5 Mean Corpuscular Hemoglobin 31.0 Mean Corpuscular Hemoglobin Concent 32.5 Red Cell Distribution Width 13.5 Platelet Count 227 Mean Platelet Volume 10.2 Neutrophils % 61.8 Lymphocytes % 18.5 Monocytes % 12.3 H Eosinophils % 6.4 Basophils % 0.5 Nucleated Red Blood Cells % 0.0 Neutrophils # 3.8 Lymphocytes # 1.1 Monocytes # 0.8 Eosinophils # 0.4 Basophils # 0.0 Nucleated Red Blood Cells # 0.0 Sodium Level 140 Potassium Level 3.6 Chloride Level 111 H Carbon Dioxide Level 23 Anion Gap 10 Blood Urea Nitrogen 7 Creatinine 0.49 Glucose Level 109 Calcium Level 8.5 Medications Medications Current Medications Naloxone HCl 0.2 mg 0.2 mg Q2M PRN IV RR 8 BREATHS/MIN OR LESS; Start 08/02/16 at 15:30 Acetaminophen (Ofirmev 1000mg/ 100ml Iv) 100 ml @ 400 mls/hr Q6H PRN IVPB PAIN LEVEL 1-3 Last administered on 08/04/16t 15:16; Admin Dose 400 MLS/HR; Start 08/02/16 at 19:00 Hydralazine HCl 10 mg 10 mg Q4H PRN IV SBP>160; Start 08/02/16 at 19:00 Sodium Chloride (1/2 NS) 1,000 ml @ 40 mls/hr Q24H IV Last administered on 08/06 18:39; Admin Dose 40 MLS/HR; Start 08/02/16 at 19:00 Ondansetron HCl (Zofran Inj) 4 mg Q6H PRN IV NAUSEA AND/OR VOMITING Last administered on 08/04/16 20:31; Admin Dose 4 MG; Start 08/02/16 at 18:57 Acetaminophen (Tylenol Tab) 650 mg Q6H PRN PO PAIN AND OR ELEVATED TEMP Last administered on 08/05/16 15:30; Admin Dose 650 MG; Start 08/03/16 at 07:30 Morphine Sulfate (morphine) 1 mg Q3H PRN IV PAIN; Start 08/03/16 at 12:30 Pantoprazole (Protonix Iv) 40 mg DAILY@06 IV Last administered on 08/07/16 05: 21; Admin Dose 40 MG; Start 08/04/16 at 06:00 Tramadol HCl (Ultram) 50 mg Q4H PRN PO PAIN LEVEL 4-6 Last administered on 18:14; Admin Dose 50 MG; Start 08/03/16 at 13:00 Montelukast Sodium (Singulair) 10 mg QHS PO Last administered on 08/06/16 21:28 ; Admin Dose 10 MG; Start 08/04/16 at 21:00 Salmeterol Xinafoate/ Fluticasone (Advair 250/50 Diskus) 1 inh BID INH Last administered on 08/06/16 21:28; Admin Dose 1 INH; Start 08/04/16 at 21:00 Mumtaz ZAMBRANO Aug 07, 2016 08:06
--- NOTE | 2016-08-07 08:09 | PN ---
DATE: 08/06/2016 Status post laparotomy and ventral hernia repair. SUBJECTIVE: The patient states through her daughter, stating that today when she was out of bed wit h the help of the physiotherapy, she was feeling dizzy and so they had to put her back to the bed. OBJECTIVE: GENERAL: The patient is awake, alert, lying down in the bed. VITAL SIGNS: Temperature 98.6, heart rate 93, respirations 18, blood pressure 114/61, saturation 94 % on 3 liters nasal cannula. ABDOMEN: Slightly distended, is soft, still there is some sanguineous drainage from the inferior co rner of the incision by pressing over the vicinity of the incision line and also spontaneously oozin g. This is accumulation of the fluid subcutaneously that drains continuously but is under control. LABORATORY DATA: WBC 5900, hemoglobin 10.4, hematocrit 30.4. Sodium, potassium, BUN, creatinine no rmal. ASSESSMENT AND MONCHO: The patient is status post laparotomy, lysis of adhesion, and repair of 2 herni as. She is an 81-year-old female. She has tolerated diet but upon ambulation, she has been feeling dizzy. Therefore, we are going to keep her another day at least to make sure that she can tolerate walking she does get dizzy to prevent falling down and having any new traumas body. We will continue to observe the patient. Dictated By: NA ASKEW/MANDO Conf#: [id number] DID#: [id number]
[2016-08-07] MEDS: SALMETEROL/FLUTICASONE 250/50 INHA INH SCH ×2 (08:36→21:40)
[2016-08-07] MEDS: traMADol 50 MG TAB PO PRN ×2 (08:37→14:09)
--- NOTE | 2016-08-07 09:07 | PN ---
DATE: 08/05/2016 Postop day #2, status post laparotomy, ventral hernia repair with mesh, lysis of adhesions. SUBJECTIVE: No new complaints. Has not had any vomiting today. Has been a bit nauseous. No bowel movement; has passed a slight amount of gas. OBJECTIVE: GENERAL: Alert, awake. VITAL SIGNS: Temperature 98.4, pulse 98, respirations 16, blood pressure 174/62, saturation 94% on liters nasal cannula. LABORATORY: WBC 9,700. It was 13,000 yesterday. Hemoglobin 10.6. Differential is 80% neutrophils . Sodium, potassium, BUN, and creatinine are within normal limits. The dressing was changed from t he of the wound some serosanguineous fluid poured out. It was squeezed. There was some accumu lation under the skin. All the fluid at this moment came out. A bulky dressing was applied and wra pped with an abdominal binder. Bowel sounds are hypoactive. ASSESSMENT AND PLAN: Status post laparotomy and hernia repair with mesh. Postop day #2. The patien t is not stable to be discharged yet, has not food, has not had a bowel movement. Will observ e the patient at least 1 more day and then will make a decision tomorrow. Dictated By: NA ASKEW/MANDO Conf#: [id number] DID#: [id number]
[2016-08-07 16:00] VITALS: BP 121/71; PULSE 69
[2016-08-07] MEDS: SOD CHLORIDE 0.45% 1,000 ML IV SCH ×2 (17:39→21:00)
--- NOTE | 2016-08-07 19:57 | PN ---
Date/Time of Note Date/Time of Note DATE: 08/07/16 TIME: 19:54 Assessment/Plan VTE Prophylaxis VTE Prophylaxis Intervention: SCD's Lines/Catheters IV Catheter Type (from Nrsg): Peripheral IV Assessment/Plan Chief Complaint/Hosp Course Patient tolerates current diet well denies nausea vomiting. Assessment/Plan - Left spigelian hernia and incarcerated midline incisional hernia, status post open repair. Continue Ultram and morphine for pain Zofran as needed for nausea. Follow-up surgical recommendations. - Hypertension. Patient is currently normotensive. - Dyslipidemia. - Asthma/ chronic obstructive pulmonary disease. Continue Advair and montelukast. Case management to arrange for home health PT services prior to discharge. Further recommendations based on clinical course. Plan of care was discussed with Dr. Oseguera. Problems: Exam/Review of Systems Vital Signs Vitals Vital Signs Date Time Temp Pulse Resp B/P Pulse Ox O2 Delivery O2 Flow Rate FiO2 08/07/16 16:00 69 121/71 08/07/16 13:40 20 Nasal Cannula 2.0 08/07/16 13:40 96 08/07/16 07:52 98.1 Intake and Output 08/06/16 08/06/16 08/07/16 14:59 22:59 06:59 Intake Total 1100 ml 740 ml Output Total 600 ml 1100 ml Balance 500 ml -360 ml Exam Constitutional: alert, oriented Head: normocephalic Neck: supple Respiratory: clear to auscultation Cardiovascular: nl pulses Gastrointestinal: other (Status post surgery), soft Extremities: normal pulses Results Result Diagram: 08/07/16 0510 08/07/16 0510 Results 24 hrs Laboratory Tests Test 08/07/16 05:10 White Blood Count 6.1 Red Blood Count 3.35 L Hemoglobin 10.4 L Hematocrit 32.0 L Mean Corpuscular Volume 95.5 Mean Corpuscular Hemoglobin 31.0 Mean Corpuscular Hemoglobin Concent 32.5 Red Cell Distribution Width 13.5 Platelet Count 227 Mean Platelet Volume 10.2 Neutrophils % 61.8 Lymphocytes % 18.5 Monocytes % 12.3 H Eosinophils % 6.4 Basophils % 0.5 Nucleated Red Blood Cells % 0.0 Neutrophils # 3.8 Lymphocytes # 1.1 Monocytes # 0.8 Eosinophils # 0.4 Basophils # 0.0 Nucleated Red Blood Cells # 0.0 Sodium Level 140 Potassium Level 3.6 Chloride Level 111 H Carbon Dioxide Level 23 Anion Gap 10 Blood Urea Nitrogen 7 Creatinine 0.49 Glucose Level 109 Calcium Level 8.5 Medications Medications Current Medications Naloxone HCl 0.2 mg 0.2 mg Q2M PRN IV RR 8 BREATHS/MIN OR LESS; Start 08/02/16 at 15:30 Acetaminophen (Ofirmev 1000mg/ 100ml Iv) 100 ml @ 400 mls/hr Q6H PRN IVPB PAIN LEVEL 1-3 Last administered on 08/04/16 15:16; Admin Dose 400 MLS/HR; Start 08/02/16 at 19:00 Hydralazine HCl 10 mg 10 mg Q4H PRN IV SBP>160; Start 08/02/16 at 19:00 Sodium Chloride (1/2 NS) 1,000 ml @ 40 mls/hr Q24H IV Last administered on 08/07 17:39; Admin Dose 40 MLS/HR; Start 08/02/16 at 19:00 Ondansetron HCl (Zofran Inj) 4 mg Q6H PRN IV NAUSEA AND/OR VOMITING Last administered on 08/04/16 20:31; Admin Dose 4 MG; Start 08/02/16 at 18:57 Acetaminophen (Tylenol Tab) 650 mg Q6H PRN PO PAIN AND OR ELEVATED TEMP Last administered on 08/05/16 15:30; Admin Dose 650 MG; Start 08/03/16 at 07:30 Morphine Sulfate (morphine) 1 mg Q3H PRN IV PAIN; Start 08/03/16 at 12:30 Pantoprazole (Protonix Iv) 40 mg DAILY@06 IV Last administered on 08/07/16 05: 21; Admin Dose 40 MG; Start 08/04/16 at 06:00 Tramadol HCl (Ultram) 50 mg Q4H PRN PO PAIN LEVEL 4-6 Last administered on 14:09; Admin Dose 50 MG; Start 08/03/16 at 13:00 Montelukast Sodium (Singulair) 10 mg QHS PO Last administered on 08/06/16 21:28 ; Admin Dose 10 MG; Start 08/04/16 at 21:00 Salmeterol Xinafoate/ Fluticasone (Advair 250/50 Diskus) 1 inh BID INH Last administered on 08/07/16t 08:36; Admin Dose 1 INH; Start 08/04/16 at 21:00 KEVON DESIR Aug 07, 2016 19:57
[2016-08-07 20:07] VITALS: BP 116/69; RESP 18
[2016-08-07] MEDS: ACETAMINOPHEN 325 MG TAB PO PRN (21:40)
[2016-08-07] MEDS: MONTELUKAST 10 MG TAB PO SCH (21:40)
[2016-08-08] MEDS: ACETAMINOPHEN 325 MG TAB PO PRN ×2 (05:17→23:49)
[2016-08-08] MEDS: PANTOPRAZOLE 40 MG INJ IV SCH (05:17)
[2016-08-08] MEDS: ONDANSETRON 4 MG INJ IV PRN (05:17)
[2016-08-08] MEDS: ALBUTEROL/IPRATROPIUM (NEB) 3 ML AMP HHN SCH ×3 (05:40→20:49)
[2016-08-08 07:12] LABS: CALCIUM 8.6 mg/dl (8.4-10.2); CREATININE 0.5 mg/dl (0.44-1.00); POTASSIUM 3.7 mmol/L (3.5-5.1)
[2016-08-08 07:58] VITALS: BP 132/65; RESP 18
[2016-08-08] MEDS: SALMETEROL/FLUTICASONE 250/50 INHA INH SCH ×2 (09:33→21:07)
--- NOTE | 2016-08-08 19:22 | PN ---
Date/Time of Note Date/Time of Note DATE: 08/08/16 TIME: 19:19 Assessment/Plan VTE Prophylaxis VTE Prophylaxis Intervention: SCD's Lines/Catheters IV Catheter Type (from Nrsg): Peripheral IV Assessment/Plan Chief Complaint/Hosp Course Patient tolerates diet well denies any nausea vomiting, remains hemodynamically stable. Assessment/Plan - Left spigelian hernia and incarcerated midline incisional hernia, status post open repair. Continue Ultram and morphine for pain Zofran as needed for nausea. Follow-up surgical recommendations. - Hypertension. Patient is currently normotensive. - Dyslipidemia. - Asthma/ chronic obstructive pulmonary disease. Continue Advair and montelukast. Awaits for arrangement of home health physical therapy services. Further recommendations based on clinical course. Plan of care was discussed with Dr. Oseguera. Problems: Exam/Review of Systems Vital Signs Vitals Vital Signs Date Time Temp Pulse Resp B/P Pulse Ox O2 Delivery O2 Flow Rate FiO2 08/08/16 07:58 98.1 104 18 132/65 91 08/08/16 05:43 21 08/08/16 05:31 Room Air 08/08/16 01:15 2.0 Intake and Output 08/07/16 08/07/16 08/08/16 15:00 23:00 07:00 Intake Total 1900 ml 480 ml Output Total 450 ml Balance 1450 ml 480 ml Exam Constitutional: alert, oriented Head: normocephalic Neck: supple Respiratory: clear to auscultation Cardiovascular: nl pulses Gastrointestinal: other (Status post surgery), soft Extremities: normal pulses Results Result Diagram: 08/07/16 0510 08/08/16 0530 Results 24 hrs Laboratory Tests Test 08/08/16 05:30 Sodium Level 137 Potassium Level 3.7 Chloride Level 108 Carbon Dioxide Level 24 Anion Gap 9 Blood Urea Nitrogen 6 L Creatinine 0.50 Glucose Level 104 Calcium Level 8.6 Medications Medications Current Medications Naloxone HCl 0.2 mg 0.2 mg Q2M PRN IV RR 8 BREATHS/MIN OR LESS; Start 08/02/16 at 15:30 Acetaminophen (Ofirmev 1000mg/ 100ml Iv) 100 ml @ 400 mls/hr Q6H PRN IVPB PAIN LEVEL 1-3 Last administered on 08/04/16t 15:16; Admin Dose 400 MLS/HR; Start 08/02/16 at 19:00 Hydralazine HCl 10 mg 10 mg Q4H PRN IV SBP>160; Start 08/02/16 at 19:00 Sodium Chloride (1/2 NS) 1,000 ml @ 40 mls/hr Q24H IV Last administered on 08/07 17:39; Admin Dose 40 MLS/HR; Start 08/02/16 at 19:00 Ondansetron HCl (Zofran Inj) 4 mg Q6H PRN IV NAUSEA AND/OR VOMITING Last administered on 08/08/16 05:17; Admin Dose 4 MG; Start 08/02/16 at 18:57 Acetaminophen (Tylenol Tab) 650 mg Q6H PRN PO PAIN AND OR ELEVATED TEMP Last administered on 08/08/16 05:17; Admin Dose 650 MG; Start 08/03/16 at 07:30 Morphine Sulfate (morphine) 1 mg Q3H PRN IV PAIN; Start 08/03/16 at 12:30 Pantoprazole (Protonix Iv) 40 mg DAILY@06 IV Last administered on 08/08/16 05: 17; Admin Dose 40 MG; Start 08/04/16 at 06:00 Tramadol HCl (Ultram) 50 mg Q4H PRN PO PAIN LEVEL 4-6 Last administered on 14:09; Admin Dose 50 MG; Start 08/03/16 at 13:00 Montelukast Sodium (Singulair) 10 mg QHS PO Last administered on 08/07/16 21:40 ; Admin Dose 10 MG; Start 08/04/16 at 21:00 Salmeterol Xinafoate/ Fluticasone (Advair 250/50 Diskus) 1 inh BID INH Last administered on 08/08/16 09:33; Admin Dose 1 INH; Start 08/04/16 at 21:00 KEVON DESIR Aug 08, 2016 19:22
[2016-08-08 19:25] VITALS: BP 135/67; RESP 20
[2016-08-08] MEDS: SOD CHLORIDE 0.45% 1,000 ML IV SCH ×2 (21:00→23:19)
[2016-08-08] MEDS: MONTELUKAST 10 MG TAB PO SCH (21:07)
[2016-08-09 06:16] LABS: ADD SCAN DIFF NO
[2016-08-09] MEDS: PANTOPRAZOLE 40 MG INJ IV SCH (06:18)
[2016-08-09 06:20] LABS: BASOPHILS % 0.5 % (0.0-2.0); EOSINOPHILS # 0.4 10^3/ul (0.0-0.5); HEMATOCRIT 30.9 % (37.0-47.0); HEMOGLOBIN 10.1 g/dl (12.0-16.0); LYMPHOCYTES # 1.4 10^3/ul (0.8-2.9); LYMPHOCYTES % 15.6 % (15.0-51.0); MEAN CORPUSCULAR HEMOGLOBIN 31.5 pg (29.0-33.0); MEAN CORPUSCULAR HGB CONC 32.7 g/dl (32.0-37.0); MEAN CORPUSCULAR VOLUME 96.3 fl (82.0-101.0); MEAN PLATELET VOLUME 9.9 fl (7.4-10.4); MONOCYTES % 11.5 % (0.0-11.0); NEUTROPHIL # 5.8 10^3/ul (1.6-7.5); NEUTROPHILS % 66.6 % (39.0-77.0); PLATELET COUNT 244 10^3/UL (140-415); RED BLOOD COUNT 3.21 10^6/ul (4.20-5.40); RED CELL DISTRIBUTION WIDTH 13.6 % (11.5-14.5); WHITE BLOOD COUNT 8.6 10^3/ul (4.8-10.8)
[2016-08-09 06:42] LABS: CALCIUM 8.9 mg/dl (8.4-10.2); CREATININE 0.54 mg/dl (0.44-1.00); POTASSIUM 3.7 mmol/L (3.5-5.1)
[2016-08-09 08:00] VITALS: BP 141/72; RESP 18
[2016-08-09] MEDS: ALBUTEROL/IPRATROPIUM (NEB) 3 ML AMP HHN SCH ×2 (08:00→14:00)
[2016-08-09] MEDS: SALMETEROL/FLUTICASONE 250/50 INHA INH SCH (09:29)
--- NOTE | 2016-08-09 13:27 | PN ---
Date/Time of Note Date/Time of Note DATE: 08/09/16 TIME: 13:27 Assessment/Plan VTE Prophylaxis VTE Prophylaxis Intervention: SCD's Lines/Catheters IV Catheter Type (from Nrsg): Peripheral IV Assessment/Plan Chief Complaint/Hosp Course s/p open incarcerated incisional hernia repair with mesh and left spigelian hernia repair Problems: Assessment/Plan dc home Subjective 24 Hr Interval Summary Free Text/Dictation doing well no issues Exam/Review of Systems Vital Signs Vitals Vital Signs Date Time Temp Pulse Resp B/P Pulse Ox O2 Delivery O2 Flow Rate FiO2 08/09/16 08:00 99.0 83 18 141/72 94 08/08/16 20:52 21 08/08/16 20:00 Nasal Cannula 08/08/16 01:15 2.0 Intake and Output 08/08/16 08/08/16 08/09/16 15:00 23:00 07:00 Intake Total 460 ml 1190 ml 610 ml Output Total 300 ml Balance 460 ml 890 ml 610 ml Exam c/d/i Results Result Diagram: 08/09/16 0527 08/09/16 0527 Results 24 hrs Laboratory Tests Test 08/09/16 05:27 White Blood Count 8.6 # Red Blood Count 3.21 L Hemoglobin 10.1 L Hematocrit 30.9 L Mean Corpuscular Volume 96.3 Mean Corpuscular Hemoglobin 31.5 Mean Corpuscular Hemoglobin Concent 32.7 Red Cell Distribution Width 13.6 Platelet Count 244 Mean Platelet Volume 9.9 Neutrophils % 66.6 Lymphocytes % 15.6 Monocytes % 11.5 H Eosinophils % 5.0 Basophils % 0.5 Nucleated Red Blood Cells % 0.0 Neutrophils # 5.8 Lymphocytes # 1.4 Monocytes # 1.0 H Eosinophils # 0.4 Basophils # 0.0 Nucleated Red Blood Cells # 0.0 Sodium Level 140 Potassium Level 3.7 Chloride Level 110 Carbon Dioxide Level 24 Anion Gap 10 Blood Urea Nitrogen 6 L Creatinine 0.54 Glucose Level 99 Calcium Level 8.9 Medications Medications Current Medications Naloxone HCl 0.2 mg 0.2 mg Q2M PRN IV RR 8 BREATHS/MIN OR LESS; Start 08/02/16 at 15:30 Acetaminophen (Ofirmev 1000mg/ 100ml Iv) 100 ml @ 400 mls/hr Q6H PRN IVPB PAIN LEVEL 1-3 Last administered on 08/04/16 15:16; Admin Dose 400 MLS/HR; Start 08/02/16 at 19:00 Hydralazine HCl 10 mg 10 mg Q4H PRN IV SBP>160; Start 08/02/16 at 19:00 Sodium Chloride (1/2 NS) 1,000 ml @ 40 mls/hr Q24H IV Last administered on 08/08 23:19; Admin Dose 40 MLS/HR; Start 08/02/16 at 19:00 Ondansetron HCl (Zofran Inj) 4 mg Q6H PRN IV NAUSEA AND/OR VOMITING Last administered on 08/08/16 05:17; Admin Dose 4 MG; Start 08/02/16 at 18:57 Acetaminophen (Tylenol Tab) 650 mg Q6H PRN PO PAIN AND OR ELEVATED TEMP Last administered on 08/08/16 23:49; Admin Dose 650 MG; Start 08/03/16 at 07:30 Morphine Sulfate (morphine) 1 mg Q3H PRN IV PAIN; Start 08/03/16 at 12:30 Pantoprazole (Protonix Iv) 40 mg DAILY@06 IV Last administered on 08/09/16 06: 18; Admin Dose 40 MG; Start 08/04/16 at 06:00 Tramadol HCl (Ultram) 50 mg Q4H PRN PO PAIN LEVEL 4-6 Last administered on 14:09; Admin Dose 50 MG; Start 08/03/16 at 13:00 Montelukast Sodium (Singulair) 10 mg QHS PO Last administered on 08/08/16 21:07 ; Admin Dose 10 MG; Start 08/04/16 at 21:00 Salmeterol Xinafoate/ Fluticasone (Advair 250/50 Diskus) 1 inh BID INH Last administered on 08/09/16 09:29; Admin Dose 1 INH; Start 08/04/16 at 21:00 Mumtaz ZAMBRANO Aug 09, 2016 13:27
[2016-08-09] MEDS: traMADol 50 MG TAB PO PRN (14:56)
[2016-08-09] MEDS ORDERED: TRAM50TA2 PO (15:05)
--- NOTE | 2016-08-13 22:47 | DS ---
DATE OF ADMISSION: 08/04/2016 DATE OF DISCHARGE: 08/09/2016 FINAL DIAGNOSES: 1. Left spigelian hernia and incarcerated midline incisional hernia status post open repair. 2. Hypertension. 3. Dyslipidemia. 4. Asthma. 5. Chronic obstructive pulmonary disease. HOSPITAL COURSE: The patient is an 81-year-old female. The patient was diagnosed with an incarcera deandre midline incisional hernia and left spigelian hernia and patient underwent open repair by Dr. Enriquez . Postoperatively, the patient experienced moderate pain and some nausea. The patient was admitted for further evaluation and management. The patient received postoperative antibiotics. The patien t also was given Toradol and morphine for pain. Also was given Tylenol for pain. THE PATIENT HAS A N ALLERGY TO CODEINE. The patient was given Zofran p.r.n. for nausea. The patient's diet was slowl y progressed to regular diet and patient was able to tolerate it. The patient's condition gradually improved. The patient was able to ambulate in the hallway. The patient also had decreased mobilit y and was evaluated by physical therapy with recommendation to continue home health physical therapy and using a front-wheeled walker, which was arranged by case management to be delivered to patient' s home. The patient was discharged home with home health care services. CONDITION ON DISCHARGE: Hemodynamically stable. ACTIVITY: No lifting more than 20 pounds for 6 to 8 weeks. DIET: 2 g sodium, low fat, low cholesterol diet. DISCHARGE MEDICATIONS: 1. The patient was given a prescription for tramadol p.r.n. for pain. 2. The patient is to continue her home medication of Tylenol. 3. Albuterol. 4. Fosamax. 5. Amlodipine. 6. Olmesartan. 7. Aspirin. 8. Calcium with vitamin D. 9. Zyrtec. 10. Flonase. 11. Metoprolol. 12. Montelukast. 13. Advair. 14. Simvastatin. DISCHARGE INSTRUCTIONS: The patient is instructed to follow up with Dr. Enriquez in postoperative appoin tment in 2 weeks. Interdisciplinary care was established for this patient. Plan of care was discussed with Dr. Krys teran. Dictated By: KEVON DESIR CAN MAKER for RONI LOPEZ MD, SR/MANDO Conf#: [id number] [facility]#: [id number]
== END 2016-08-09 17:40 | disposition home health service (06) | DRG 355 ==
LOC: SDS 10:56 → MS2 15:10 → OBSVTOIN 08-04 10:14
PROVIDERS: ADMIT Internal Medicine; ATTEND Surgery
PROC: 0WUF0JZ Supplement Abdominal Wall with Synthetic Substitute, Open Approach (ICD-10-PCS; principal; 2016-08-02 13:00)
DX: K43.0 Incisional hernia with obstruction, without gangrene (principal); J44.9 Chronic obstructive pulmonary disease, unspecified; I10 Essential (primary) hypertension; K43.9 Ventral hernia without obstruction or gangrene; E78.5 Hyperlipidemia, unspecified; J45.909 Unspecified asthma, uncomplicated; Z86.73 Personal history of transient ischemic attack (TIA), and cerebral infarction without residual deficits
CPT/HCPCS: 80048; 80053; 85025; 88302; 94640; 94664; 97110; 97116; 97162; 97530; C1781; C9113; G0378; J0131; J0690; J1170; J1885; J2405; J2710; J2765; J2795; J3010; J7030